=== PATIENT | male | born 2005 | race Caucasian/White ===

== ENCOUNTER 2023-11-17 13:01 | Emergency (ER) | payer OTHER ==
[~2023-11-17] VITALS: Ht 170.2 cm; Wt 74.8 kg
[2023-11-17 13:08] VITALS: BP 98/57; PULSE 82; RESP 18; TEMP 98.2; O2SAT 97
[2023-11-17 13:31] VITALS: O2SAT 97
[2023-11-17] MEDS: HYDROcodone/APAP 5/325 MG 1 TAB TAB PO ONE (13:39)
[2023-11-17] MEDS: NACL 0.9% 1,000 ML IV ONE (15:12)
[2023-11-17] MEDS ORDERED: PROPOFOL 200 MG/20 ML VIAL IV ONE (15:18)
[2023-11-17] MEDS: PROPOFOL 200 MG/20 ML VIAL IV ONE (15:29)
[2023-11-17 15:32] VITALS: BP 110/66; PULSE 69; RESP 18; O2SAT 100
[2023-11-17] MEDS ORDERED: IBUP-2213 PO (16:56)
[2023-11-17] MEDS ORDERED: ACET-8905 PO (16:56)
== END 2023-11-17 17:17 | disposition home or self-care (01) ==
LOC: MED 13:01
DX: S63.095A Other dislocation of left wrist and hand, initial encounter (principal); S62.002A Unspecified fracture of navicular [scaphoid] bone of left wrist, initial encounter for closed fracture; R03.0 Elevated blood-pressure reading, without diagnosis of hypertension; Z79.1 Long term (current) use of non-steroidal anti-inflammatories (NSAID); Y93.66 Activity, soccer; Y93.89 Activity, other specified; Y92.89 Other specified places as the place of occurrence of the external cause; Y99.8 Other external cause status
CPT/HCPCS: 25690; 73100; 73110; 73130; 96360; 99285; J2704; J7030; G0500